=== PATIENT | female | born 1970 | race Two or more races ===

== ENCOUNTER 2021-12-22 13:58 | Emergency (ER) | payer OTHER ==
[~2021-12-22] VITALS: Ht 177.8 cm; Wt 86.2 kg
[2021-12-22] MEDS ORDERED: LEVOTHYROXINE25 MCG PO (14:09)
[2021-12-22] MEDS ORDERED: MUPIROCIN1 G1 TOP (14:17)
== END 2021-12-22 14:40 | disposition home or self-care (01) ==
LOC: ER 13:58
DX: S60.122A Contusion of left index finger with damage to nail, initial encounter (principal); X58.XXXA Exposure to other specified factors, initial encounter; Y92.89 Other specified places as the place of occurrence of the external cause; E03.9 Hypothyroidism, unspecified